=== PATIENT | male | born 1950 | race Caucasian/White ===

== ENCOUNTER → 2017-02-24 | Outpatient (CLI) | payer BC | END | disposition home or self-care (01) | LOC: GMA 19:30 | PROVIDERS: ATTEND Nurse Practitioner Acute Care | DX: E34.9 Endocrine disorder, unspecified (principal) ==

== ENCOUNTER → 2018-03-09 | Outpatient (CLI) | payer BC | LOC: GMAM 12:14 | PROVIDERS: ATTEND Family Medicine | DX: Z12.5 Encounter for screening for malignant neoplasm of prostate (principal) ==

== ENCOUNTER → 2018-06-25 | Outpatient (CLI) | payer BC | LOC: LAB.O 08:57 | PROVIDERS: ATTEND Orthopaedic Surgery | DX: Z01.818 Encounter for other preprocedural examination (principal) ==

== ENCOUNTER → 2018-11-09 | Outpatient (CLI) | payer BC | LOC: RESP 14:50 | PROVIDERS: ATTEND Orthopaedic Surgery | DX: Z01.818 Encounter for other preprocedural examination (principal) ==

== ENCOUNTER 2018-11-18 05:43 | Day surgery (SDC) | payer BC ==
--- NOTE | 2018-11-16 09:58 | HP ---
CHIEF COMPLAINT: Left knee pain. HISTORY OF PRESENT ILLNESS: Mr. Means is a 68-year-old male with a history of pain in the left knee. He has had this going on for at least a year. He has had Synvisc injections and has had steroids, but he has had no improvement. He denies any radiation of pain or neurologic symptoms. He has had occasional locking, which he says was associated with some popping and acute onset of pain. Because of his mechanical symptoms and failure of conservative measures, he has requested operative intervention. After discussing the risks, benefits and alternatives to knee arthroscopy, he has given informed consent. PAST SURGICAL HISTORY: 1. Appendectomy. 2. Shoulder open reduction and internal fixation. MEDICATIONS: 1. Bystolic. 2. Amlodipine. 3. Protonix. 4. Calcium. 5. Zorvolex. 6. Magnesium. ALLERGIES: LISINOPRIL. CODE STATUS: Full code. IMMUNIZATIONS: Up to date. FAMILY HISTORY: None pertinent to today's complaint. SOCIAL HISTORY: The patient does not drink, smoke or use any illicit drugs. REVIEW OF SYSTEMS: Negative except as indicated in the History of Present Illness. PHYSICAL EXAMINATION: VITAL SIGNS: Blood pressure 168/100. Pulse 62. Height 5'9". Weight 220 pounds. MENTAL STATUS: The patient is awake, alert, and is able to give a good history and participate in the physical. The patient is oriented to person, place and time. SKIN: Normal tone and turgor. MUSCULOSKELETAL: He is very tender along the medial aspect of the knee. He has minor lateral joint-line tenderness. He has full extension and flexion is to about 130 degrees. He has no varus/valgus or anterior/posterior laxity. He has a mild effusion and no gross overall malalignment. IMAGING: X-rays show no evidence of acute bony abnormality. ASSESSMENT: 1. Meniscus tear. 2. Knee pain. PLAN: The plan at this point is for knee arthroscopy. We have discussed the risks, benefits, and alternatives to that and the patient has given informed consent. #[id number] [facility]
[2018-11-18] MEDS ORDERED: SODIUM CHL 0.9% 100ML MINI-BAG 100 ML IVPB ONE (05:47)
[2018-11-18] MEDS ORDERED: LACTATED RINGERS 1,000 ML ONE (05:47)
[2018-11-18] MEDS ORDERED: ceFAZolin SODIUM 1 GM VIAL ONE ×2 (05:48→06:27)
[2018-11-18] MEDS ORDERED: fentaNYL CITRATE INJ 50 MCG/ML AMP ONE (06:48)
[2018-11-18] MEDS ORDERED: MIDAZOLAM INJ 2 MG/2 ML VIAL ONE (06:48)
[2018-11-18] MEDS: BUPIVACAINE 0.5% 30 ML VIAL INJ ONE ×2 (07:34→07:52)
[2018-11-18] MEDS: ceFAZolin SODIUM 1 GM VIAL ONE ×2 (07:35→07:55)
[2018-11-18] MEDS: VANCOMYCIN HCL INJ 1,000 MG VIAL IVPB ONE ×2 (07:35→07:55)
[2018-11-18] MEDS: BUPIVACAINE LIPOSOME 13.3 MG/ML VIAL INJ ONE ×2 (07:35→07:52)
[2018-11-18 08:48] VITALS: O2SAT 94
[2018-11-18 09:35] VITALS: BP 138/63; TEMP 97
[2018-11-18] MEDS ORDERED: METOCLOPRAMIDE HCL INJ 10 MG/2 ML VIAL IV ONE (10:00)
[2018-11-18] MEDS ORDERED: LIDOCAINE 1% 10 ML VIAL INJ ONE (10:00)
[2018-11-18] MEDS ORDERED: DEXAMETHASONE INJ 10 MG/ML VIAL IV ONE (10:00)
[2018-11-18] MEDS ORDERED: PROPOFOL 200 MG/20 ML VIAL IV ONE (10:00)
[2018-11-18] MEDS ORDERED: raNITIdine HCL INJ 25 MG/ML VIAL IV ONE (10:00)
--- NOTE | 2018-11-18 10:54 | OP ---
DATE OF PROCEDURE: 11/18/18 PREOPERATIVE DIAGNOSIS: 1. Knee pain. POSTOPERATIVE DIAGNOSIS: 1. Advanced osteoarthritis. 2. Degenerative meniscus tear. PROCEDURE: 1. Debridement. SURGEON: Vinny Guthrie MD. CORPORATE EXECUTIVE CHEF: Trevor Sierra CST, SA-C. ANESTHESIA: General anesthesia. COMPLICATIONS: None. FINDINGS: 1. Advanced arthropathy of the medial compartment. 2. Degenerative tearing of the medial meniscus. 3. Grade 2 to 3 changes in the lateral compartment. 4. Normal anterior cruciate ligament and normal posterior cruciate ligament. 5. Normal lateral gutter. 6. Normal suprapatellar pouch. 7. Advanced arthropathy of the patellofemoral joint. 8. Normal medial gutter. INDICATION: Mr. Means has a long history of knee pain for which he has not had any relief using more conservative measures. Because of his ongoing pain and his difficulty with getting with getting relief with conservative measures, he has requested operative intervention. After discussing the risks, benefits and alternatives to operative intervention, the patient has given informed consent. PROCEDURE: The patient was brought to the Operating Room and placed in supine position. General anesthesia was induced and the patient's leg was sterilely prepped and draped. Following prepping and draping, standard anteromedial and anterolateral portals were established. Diagnostic arthroscopy was carried out with the above findings. Attention was then focused on the medial compartment and a 3.5 mm full radius shaver was used to debride the cartilaginous surface to stable base. Attention was then focused on the meniscus where a 3.5 mm full radius shaver was used to debride the meniscus to a stable rim. Both the cartilaginous surface and the meniscal remnant were thoroughly probed to ensure complete debridement and stability. The knee was thoroughly irrigated. The wounds were closed with Nylon suture. Sterile dressings were placed. The patient was awoken from anesthesia and taken to Recovery. POSTOPERATIVE PLAN: The patient will be partial weightbearing and will followup with us in approximately two days. #[id number] [facility]
== END 2018-11-18 09:25 | disposition home or self-care (01) ==
LOC: AMB 05:43
PROVIDERS: ATTEND Orthopaedic Surgery
DX: M17.12 Unilateral primary osteoarthritis, left knee (principal); M23.204 Derangement of unspecified medial meniscus due to old tear or injury, left knee; I10 Essential (primary) hypertension; K21.9 Gastro-esophageal reflux disease without esophagitis; E66.9 Obesity, unspecified; Z90.49 Acquired absence of other specified parts of digestive tract; Z88.8 Allergy status to other drugs, medicaments and biological substances; Z79.899 Other long term (current) drug therapy
CPT/HCPCS: 01400; 29881; 80307; J0690; J1100; J2250; J2765; J2780; J3010; J3370; J3490; J7050; J7120

== ENCOUNTER 2020-07-05 14:38 | Inpatient (IN) | payer BC, MEDICARE ==
[2020-07-05] MEDS ORDERED: KCL 20MEQ/WATER FOR INJ 100ML 20 MEQ in PREMIX BAG 1 BAG IVPB ONE ×2 (14:55→14:56)
[2020-07-05] MEDS ORDERED: MAGNESIUM SULFATE PREMIX 2GM 2 GM in PREMIX BAG 1 BAG IVPB ONE (15:55)
[2020-07-05] MEDS ORDERED: SODIUM CHLORIDE 0.9% (FLUSH) 10 ML SYG IV PRN (16:06)
[2020-07-05] MEDS ORDERED: IV SET AND CAP CHANGE INJ INJ SCH (16:30)
[2020-07-05] MEDS ORDERED: LACTATED RINGERS 1,000 ML ONE (16:42)
[2020-07-05] MEDS: LACTATED RINGERS IVS PRN (16:48)
[2020-07-05] MEDS: POTASSIUM CHLORIDE IVS PRN (16:48)
[2020-07-05] MEDS ORDERED: MAGNESIUM SULFATE PREMIX 2GM 50 ML IVPB ONE (18:55)
[2020-07-06] MEDS ORDERED: LACTATED RINGERS 1,000 ML ONE (03:49)
[2020-07-06] MEDS: POTASSIUM CHLORIDE IVS PRN (04:41)
[2020-07-06] MEDS: LACTATED RINGERS IVS PRN (04:41)
[2020-07-06] MEDS ORDERED: KCL 20MEQ/WATER FOR INJ 100ML 20 MEQ in PREMIX BAG 1 BAG IVPB ONE ×6 (06:37→21:51)
[2020-07-06] MEDS ORDERED: KCL 20MEQ/WATER FOR INJ 100ML 100 ML IVPB ONE (06:42)
[2020-07-06] MEDS: ONDANSETRON INJ 4 MG/2 ML VIAL IV PRN (09:22)
[2020-07-06] MEDS ORDERED: HYDROcodone/APAP 5MG/217MG LIQ 10 ML UD GT PRN (10:40)
[2020-07-06] MEDS ORDERED: DIPHENOXYLATE HCL/ATROPINE 2.5 MG TAB GT PRN (10:40)
[2020-07-06] MEDS ORDERED: LOPERAMIDE CAP 2 MG CAP GT PRN (10:40)
[2020-07-06] MEDS ORDERED: PROCHLORPERAZINE MALEATE 10 MG TAB GT PRN (10:40)
[2020-07-06] MEDS ORDERED: CEPHALEXIN SUSPENSION 250 MG/5 ML 100ML BOTTLE NG SCH (13:00)
[2020-07-06] MEDS: KCL 20MEQ/D5W 1,000 ML IVS PRN (17:49)
[2020-07-06] MEDS: CEPHALEXIN SUSPENSION 250 MG/5 ML 100ML BOTTLE NG SCH ×2 (17:49→22:11)
--- NOTE | 2020-07-06 20:37 | HP ---
SUPERVISING PHYSICIAN: Quincy Beck M.D. CHIEF COMPLAINT: Weakness and hypokalemia. HISTORY OF PRESENT ILLNESS: This is a 70 year-old male patient with a history of esophageal cancer who got chemotherapy for the last 6 weeks or so. He has had some dysphagia and frequent vomiting, so he got a J-tube placement. He has had some issues over the last couple of weeks with dehydration and has required admission in [place] for IV fluid resuscitation. Today, he was feeling weak again and was seen by his primary care physician, Dr. Angeles. Labs were done and he was found to have a significantly low potassium at 2.0. For that reason, I was called for observational admission and treatment of the hypokalemia. At time of examination, the patient is alert and oriented with no distress, although weak. PAST MEDICAL HISTORY: 1. Esophageal cancer on chemotherapy. 2. Hypertension. 3. Gastroesophageal reflux disease. PAST SURGICAL HISTORY: 1. Appendectomy. 2. Colonoscopy. 3. Esophagogastroduodenoscopy. 4. J-tube placement. 5. Bilateral knee arthroscopies. 6. Left shoulder surgery. 7. Back surgery. CURRENT MEDICATIONS: Please see Med. Rec. list once they are verified in the computer. ALLERGIES: LISINOPRIL. FAMILY HISTORY: Diabetes, brain cancer. SOCIAL HISTORY: The patient is . Nonsmoker. Occasional alcohol use. No illicit drugs. REVIEW OF SYSTEMS: CONSTITUTIONAL: Positive for fatigue. No fever or chills. HEENT: No headaches, vision changes, ear pain, nasal congestion or throat pain. RESPIRATORY: No cough, hemoptysis or pleuritic chest pain. CARDIOVASCULAR: No chest pain, palpitations or peripheral edema. GASTROINTESTINAL: Positive for some nausea and vomiting. No diarrhea, no constipation, no abdominal pain. GENITOURINARY: No dysuria, frequency or flank pain. ENDOCRINE: No polydipsia, polyuria or polyphagia. No heat or cold intolerance. MUSCULOSKELETAL: No muscle weakness. No myalgias or arthralgia. NEUROLOGIC: No syncope, paresthesias or seizures. PHYSICAL EXAMINATION: VITAL SIGNS: Blood pressure 121/75, heart rate 110, respiratory rate 16, temperature 98.7, oxygen saturation 97%. GENERAL: Mr. Means is a 70 year-old male patient, is in no distress. NEUROLOGIC: The patient is alert. LUNGS: Clear. CARDIOVASCULAR: Slightly tachycardic with normal S1, S2. ABDOMEN: Soft. Positive bowel sounds. J-tube noted. EXTREMITIES: Lower extremities with no edema. 2+ pulses. Capillary refill is less than 2 seconds. LABORATORY: Labs done at the clinic show a normal white count of 7.3, hemoglobin 13.7, platelet count 250. Chemistry shows sodium 146, chloride 113, potassium 2.0, magnesium 1.7. Does have a high ALT of 138, AST is normal at 44. Protein is down to 6.0 with albumin 3.2. ASSESSMENT: 1. Symptomatic hypokalemia. 2. Hypomagnesemia. 3. Dehydration. 4. Esophageal cancer on chemotherapy. 5. Protein calorie malnutrition. PLAN: At this point, the patient will be administered IV fluids and potassium along with IV potassium replacement and magnesium replacement. Will recheck the labs in the morning. Restart his home medications once they are verified in the computer. #[id number] [facility]
--- NOTE | 2020-07-06 20:50 | PN ---
SUPERVISING PHYSICIAN: REINALDO SMALL MD DATE: 07/06/20 SUBJECTIVE: The patient continues to have some nausea. He still has IV potassium, still has a low potassium, not having any obvious on the monitors. Appetite is still not great. He is on tube feeding. He does note when he gets his oral potassium through the J-tube, it just goes straight through him. He feels like his strength is still a little less than it should but he has no further complaints at this time. Showing to not be in any distress. OBJECTIVE: VITAL SIGNS: Temperature 97.9, pulse 92, blood pressure 146/84, respirations 18, oxygen saturation 92% on room air. GENERAL: The patient looks tired but doesn't appear to be in acute distress. He is alert. CHEST: Clear to auscultation. HEART: Regular rate and rhythm. ABDOMEN: J-tube remains in place. Bowel sounds are positive. Abdomen soft. EXTREMITIES: No edema. NEUROLOGICAL: Alert and oriented x 3. LABORATORY: Repeat BNP today after initial dosing of potassium shows his potassium only came up to 2.5 but sodium 146. BUN coming up a little bit to 19, creatinine 1, magnesium normal at 2.0.; ASSESSMENT: 1. Symptomatic hypokalemia persistent requiring multiple doses of parenteral IV potassium. 2. Hypomagnesemia now normalized with IV replacement. 3. Dehydration requiring ongoing fluids secondary to chemotherapy and associated diarrhea. 4. Esophageal cancer on chemotherapy, next session of chemotherapy is July 10. 5. Protein calorie malnutrition on supplementation. PLAN: Will continue with IV fluids. I switched him over to D5W with 20 of potassium, replace prewater deficits. Will continue with potassium 40 mEq every 4 hours, repeat potassium level, continue to shows we getting potassium showing to be improved and stable, around 3.2 to 3.4 preferably and then hopefully discharge home. Next session of chemo to be on Friday, his potassium has been persistently low. He will continue with current plan of care until we can transition him to outpatient management. [facility][id number] [facility]
[2020-07-06] MEDS: POTASSIUM CHLORIDE ELIXIR 20 MEQ/15 ML UD GT SCH (20:51)
[2020-07-06] MEDS ORDERED: MAGNESIUM SULFATE PREMIX 2GM 2 GM in PREMIX BAG 1 BAG IVPB ONE (21:49)
[2020-07-06] MEDS ORDERED: MAGNESIUM SULFATE PREMIX 2GM 50 ML IVPB ONE (22:02)
[2020-07-06] MEDS ORDERED: POTASSIUM CHLORIDE IVPB ONE (22:02)
[2020-07-06] MEDS ORDERED: [UNRECOGNIZED DRUG - OTHER] IVPB ONE (22:02)
[2020-07-07] MEDS: KCL 20MEQ/D5W 1,000 ML IVS PRN (04:37)
[2020-07-07] MEDS: ONDANSETRON INJ 4 MG/2 ML VIAL IV PRN (04:56)
[2020-07-07 05:24] VITALS: TEMP 98.3
[2020-07-07] MEDS ORDERED: PANTOPRAZOLE SODIUM IV 40 MG VIAL IV ONE (06:00)
[2020-07-07] MEDS ORDERED: PANTOPRAZOLE SOD SUSP 40 MG PCKT GT SCH (06:30)
[2020-07-07] MEDS: CEPHALEXIN SUSPENSION 250 MG/5 ML 100ML BOTTLE NG SCH ×2 (06:39→12:09)
[2020-07-07] MEDS ORDERED: KCL 20MEQ/WATER FOR INJ 100ML 20 MEQ in PREMIX BAG 1 BAG IVPB ONE ×2 (08:15→10:30)
[2020-07-07] MEDS ORDERED: KCL 20MEQ/WATER FOR INJ 100ML 100 ML IVPB ONE ×2 (08:30→08:34)
[2020-07-07] MEDS: POTASSIUM CHLORIDE ELIXIR 20 MEQ/15 ML UD GT SCH (08:59)
[2020-07-07 11:26] VITALS: BP 124/75; O2SAT 98
[2020-07-07] MEDS ORDERED: POTASSIUM CHLORIDE 20 MEQ TAB GT ONE (11:38)
--- NOTE | 2020-07-07 15:24 | RAD ---
EXAM DESCRIPTION: Abdomen 1 View CLINICAL HISTORY: 70 years Male, J-tube wont flush COMPARISON: None. Findings: One view(s)/radiograph(s) Left midabdomen gastrostomy catheter. No catheter discontinuity. Nonobstructive bowel gas pattern large stool volume. No suspicious calcification. No acute osseous abnormality. IMPRESSION: Left midabdomen gastrostomy catheter. Electronically signed by: Umair Knowles MD 07/07/2020 3:22 PM CDT
--- NOTE | 2020-07-18 09:06 | DS ---
SUPERVISING PHYSICIAN: Quincy Beck M.D. ADMISSION DIAGNOSES: 1. Symptomatic hypokalemia. 2. Hypomagnesemia. 3. Dehydration. 4. Esophageal cancer on chemotherapy. 5. Protein calorie malnutrition. DISCHARGE DIAGNOSES: 1. Symptomatic hypokalemia persistent requiring multiple doses of parenteral IV potassium. 2. Hypomagnesemia now normalized with IV replacement. 3. Dehydration requiring ongoing fluids secondary to chemotherapy and associated diarrhea. 4. Esophageal cancer on chemotherapy, next session of chemotherapy is July 10. 5. Protein calorie malnutrition on supplementation. REASON FOR HOSPITALIZATION: This is a 70 year-old male patient with a history of esophageal cancer who got chemotherapy for the last 6 weeks or so. He has had some dysphagia and frequent vomiting, so he got a J-tube placement. He has had some issues over the last couple of weeks with dehydration and has required admission in [place] for IV fluid resuscitation. Today, he was feeling weak again and was seen by his primary care physician, Dr. Angeles. Labs were done and he was found to have a significantly low potassium at 2.0. For that reason, I was called for observational admission and treatment of the hypokalemia. At time of examination, the patient is alert and oriented with no distress, although weak. LABORATORY: Chemistries on discharge showed potassium 3.0, BUN 19, creatinine 0.80. Initial admission potassium was 2.2. HOSPITAL COURSE: The patient was admitted for replacement of his potassium and magnesium and fluid. He was provided IV replacement, multiple doses as well as magnesium, also on day of discharge he had requested that we try oral potassium in the form of a pill that was dissolved in water by the primary nurse, however, his tube became difficult to flush and his tube feedings were not flowing as easily as they should have. The patient was showing to be stable. I made attempts to clear the tube myself. X-rays showed no complications in the tubing. I was able to actually flush his tubing with 30 to 60 cc of water with some mild resistance and after talking with the patient's , she was in agreement that she would continue to work on the tube at home to see if she could get it to flush easier as he had also been getting his potassium in the form of a tablet that was dissolved which did pose some issues with his tubing as well. Again, the tubing was working, it was just working slowly. The patient and both agreed that he had an appointment to see his oncologist on Friday and if they needed to, they would go to [place] on Friday to see if the tubing needed to be flushed or something different tried. The patient had actually tried to clear the tubing himself with a mechanical instrument that resulted in some of the device being dislodged and stuck which was slowly worked out and removed. The patient was showing to be stable on discharge. He was well hydrated. His vital signs showed his blood pressure was 124/75, pulse 78, oxygen saturation 98%. It was felt he was clinically improved well enough to discharge home. PLAN: The patient was discharged home with instructions to followup with Dr. Angeles and his oncologist and returned to the Emergency Room if needed. He was to utilize his tube feeding as tolerated. He was given a prescription for potassium chloride elixir 20 milliequivalents per 15 meals via G-tube twice a day, #8 ounces, no refills. CONDITION ON DISCHARGE: Stable and improving. DISPOSITION: The patients is discharged home to care of family members. [facility][id number] [facility]
== END 2020-07-07 16:50 | disposition home or self-care (01) | DRG 641 ==
LOC: OBSVTOIN 14:38 → INTOOBSV 14:38 → MS 14:38
PROVIDERS: ADMIT Nurse Practitioner; ATTEND Nurse Practitioner Family
DX: E87.6 Hypokalemia (principal); E46 Unspecified protein-calorie malnutrition; C15.9 Malignant neoplasm of esophagus, unspecified; K52.1 Toxic gastroenteritis and colitis; E83.42 Hypomagnesemia; E86.0 Dehydration; T45.1X5A Adverse effect of antineoplastic and immunosuppressive drugs, initial encounter; Y92.9 Unspecified place or not applicable; I10 Essential (primary) hypertension; Z88.8 Allergy status to other drugs, medicaments and biological substances; Z68.22 Body mass index [BMI] 22.0-22.9, adult

== ENCOUNTER → 2020-07-05 | Outpatient (CLI) | payer BC | LOC: GMAM 14:15 | PROVIDERS: ATTEND Family Medicine | DX: E86.0 Dehydration (principal) ==

== ENCOUNTER → 2020-08-14 | Outpatient (CLI) | payer BC, MEDICARE | LOC: HHH 10:27 | PROVIDERS: ATTEND Family Medicine | DX: R30.0 Dysuria (principal) ==